=== PATIENT | male | born 1965 | race Caucasian/White ===

== ENCOUNTER 2021-04-18 14:47 | Day surgery (SDCO) | payer OTHER ==
[~2021-04-18] VITALS: Ht 172.7 cm; Wt 126.1 kg
[2021-04-18 15:35] LABS: BASOPHIL 0.5 % (0-2); EOSINOPHIL 0.9 % (0-5); HCT 46.3 % (42.0-52.0); HGB 16.5 g/dl (13.2-18.0); LYMPHOCYTE 16.7 % (15-48); MCH 30.6 pg (25.0-31.0); MCHC 35.6 g/dL (32.0-36.0); MCV 85.9 fL (78.0-100.0); MONOCYTE 7.1 % (0-12); MPV 9.9 fL (6.0-9.5); NEUTROPHIL 74.5 % (41-80); NRBC 0; PLT 236 K/uL (150-400); RBC 5.39 M/uL (4.70-6.00); RDW 12.2 % (11.5-14.0); WBC 6.6 K/uL (4.0-10.5)
[2021-04-18 15:39] LABS: INR 0.87 (0.9-1.2); PROTHROMBIN TIME 11.2 SECONDS (11.4-13.6); PTT 23.6 SECONDS (22.2-34.7)
[2021-04-18 15:40] LABS: BILIRUBIN NEGATIVE (NEGATIVE); BLOOD TRACE-INTACT Ery/uL (NEGATIVE); CLARITY CLEAR (CLEAR); COLOR YELLOW (YELLOW); GLUCOSE (U) 3+ mg/dL (NORMAL); LEUKOCYTES NEGATIVE Leu/uL (NEGATIVE); NITRITE NEGATIVE (NEGATIVE); PROTEIN NEGATIVE (NEGATIVE); SPECIFIC GRAVITY <=1.005 (1.001-1.030); UROBILINOGEN 0.2 mg/dL (0.2-1.0)
[2021-04-18 15:57] LABS: CKMB 1.3 ng/mL (0.0-3.6)
[2021-04-18 16:11] LABS: ALBUMIN 2.7 g/dL (3.4-5.0); BILIRUBIN - TOTAL 0.8 mg/dL (0.2-1.0); BUN/CREAT RATIO (CALC) 23.1 RATIO; CREATININE 0.78 mg/dL (0.67-1.17); GLOBULIN (CALCULATION) 3.9 g/dL; POTASSIUM 3.9 mmol/L (3.5-5.1); TOTAL PROTEIN 6.6 g/dL (6.4-8.2)
[2021-04-19 08:33] LABS: HCT 44.2 % (42.0-52.0); HGB 15.2 g/dl (13.2-18.0); MCH 30.2 pg (25.0-31.0); MCHC 34.4 g/dL (32.0-36.0); MCV 87.9 fL (78.0-100.0); MPV 9.6 fL (6.0-9.5); RBC 5.03 M/uL (4.70-6.00); RDW 12.4 % (11.5-14.0); WBC 5.6 K/uL (4.0-10.5)
[2021-04-19 08:49] LABS: BUN/CREAT RATIO (CALC) 25.6 RATIO; CREATININE 0.78 mg/dL (0.67-1.17); POTASSIUM 3.9 mmol/L (3.5-5.1)
[2021-04-19] MEDS ORDERED: NORVASC5 MG PO (12:34)
[2021-04-19] MEDS ORDERED: METFORMIN HCL500 MG PO (12:34)
[2021-04-19] MEDS ORDERED: LANTUS100 UNIT/1 SC (12:34)
[2021-04-19] MEDS ORDERED: LISINOPRIL40 MG PO (12:34)
--- NOTE | 2021-05-15 10:48 | NUR ---
05/15/21 [facility], [place] sent request for re-fills to Dr. Elizabeth. Dr. Elizabeth filled out rxs to efforts to avoid re-admission. Bart at [facility], , will advise patient to see PCP for additional refills.
== END 2021-04-19 13:40 | disposition home or self-care (01) ==
LOC: FER 14:47 → FTCU 16:30
PROVIDERS: Emergency Medicine; ADMIT Internal Medicine
DX: I16.1 Hypertensive emergency (principal); I67.4 Hypertensive encephalopathy; E11.65 Type 2 diabetes mellitus with hyperglycemia; E87.1 Hypo-osmolality and hyponatremia; I10 Essential (primary) hypertension; E78.5 Hyperlipidemia, unspecified; G47.30 Sleep apnea, unspecified; E66.01 Morbid (severe) obesity due to excess calories; Z79.4 Long term (current) use of insulin; Z79.899 Other long term (current) drug therapy; Z20.822 Contact with and (suspected) exposure to COVID-19
CPT/HCPCS: 36415; 70450; 80048; 80053; 81001; 82553; 82962; 83036; 84484; 85025; 85610; 85730; 93005; G0378; J7030; J7040; U0002